=== PATIENT | female | born 1950 | race Caucasian/White ===

== ENCOUNTER 2016-08-07 09:01 | Emergency (ER) | payer BC ==
[2016-08-07] MEDS ORDERED: Hyoscyamine TAB* 0.125 MG PO ONE (10:01)
[2016-08-07 10:02] LABS: Hematocrit 43 % (35-47); Hemoglobin 14.4 g/dl (12.0-16.0); Mean Corpuscular HGB Conc 33 g/dl (31-36); Mean Corpuscular Hemoglobin 28 pg (27-31); Mean Corpuscular Volume 84 fL (80-97); Mean Platelet Volume 8 um3 (7.4-10.4); Red Blood Count 5.16 10^6/ul (4.0-5.4); Red Cell Distribution Width 15 % (10.5-15); White Blood Count 7.6 10^3/ul (3.5-10.8)
[2016-08-07] MEDS ORDERED: NS 0.9% 1000 ML* 1,000 ML IV ONE ×2 (10:15→12:12)
[2016-08-07] MEDS ORDERED: Ondansetron INJ* 2 MG/ML VIAL IV ONE (10:15)
--- NOTE | 2016-08-07 10:15 | ED ---
Abdominal Pain/Female - HPI Summary HPI Summary: Patient presents with a week of nausea, diarrhea and abdominal bloating and pain. She has been "gassy" for approximately three weeks, but 6 days ago she developed pain. Her last normal stool was 6 days ago. Since then she has had a "rolling sensation" in her stomach with LUQ and periumbilical pain. She denies fever, chills, back pain or anorexia, but when she eats she becomes nauseous. - History of Current Complaint Chief Complaint: EDAbdPain Stated Complaint: DIARRHEA/SOB Time Seen by Provider: 08/07/16 09:27 Hx Obtained From: Patient ?: No Onset/Duration: Gradual Onset Timing: Constant Severity Initially: Mild Severity Currently: Moderate Pain Intensity: 5 Location: Discrete At: LUQ, Umbilical Radiates: No Character: Dull, Other: - bloated Aggravating Factor(s): Food Alleviating Factor(s): Nothing Associated Signs and Symptoms: Positive: Nausea, Diarrhea Allergies/Adverse Reactions: Allergies Allergy/AdvReac Type Severity Reaction Status Date / Time Erythromycin AdvReac Intermediate Nausea Verified 08/07/16 09:10 Ibuprofen [From Advil] AdvReac Intermediate GI Upset Verified 08/07/16 09:10 PMH/Surg Hx/FS Hx/Imm Hx Endocrine/Hematology History: Reports: Hx Thyroid Disease - Thyroidectomy Denies: Hx Diabetes Cardiovascular History: Denies: Hx Hypertension Respiratory History: Denies: Hx Asthma, Hx Chronic Obstructive Pulmonary Disease (COPD) GI History: Denies: Hx Ulcer - Surgical History Surgery Procedure, Year, and Place: Hysterectomy 1991, Thyroidectomy 1996, Ovarian Cyst 1991 Infectious Disease History: No Infectious Disease History: Denies: Hx Hepatitis, Hx Human Immunodeficiency Virus (HIV), Traveled Outside the [place] in Last 30 Days - Family History Known Family History: Positive: None - Social History Occupation: Unemployed Lives: With Family Alcohol Use: Occasionally Substance Use Type: Reports: None Smoking Status (MU): Never Smoked Tobacco Review of Systems Negative: Fever, Chills Negative: Chest Pain Negative: Shortness Of Breath, Cough Positive: Abdominal Pain, Diarrhea, Nausea. Negative: Vomiting Positive: no symptoms reported Negative: Headache All Other Systems Reviewed And Are Negative: Yes Physical Exam Triage Information Reviewed: Yes Vital Signs On Initial Exam: Initial Vitals Temp Pulse Resp BP Pulse Ox 98.5 F 97 18 120/84 98 08/07/16 09:09 08/07/16 09:09 08/07/16 09:09 08/07/16 09:09 08/07/16 09:09 Vital Signs Reviewed: Yes Appearance: Positive: Well-Appearing, Pain Distress, Obese Skin: Positive: Warm, Skin Color Reflects Adequate Perfusion, Dry, Soft Head/Face: Positive: Normal Head/Face Inspection Eyes: Positive: EOMI, ARIC, Conjunctiva Clear ENT: Positive: Hearing grossly normal, Pharynx normal Neck: Positive: Supple, Nontender, No Lymphadenopathy Respiratory/Lung Sounds: Positive: Clear to Auscultation, Breath Sounds Present Cardiovascular: Positive: RRR Abdomen Description: Positive: Soft. Negative: Nontender - LUQ pain, CVA Tenderness (R), CVA Tenderness (L), Distended, Guarding Bowel Sounds: Positive: Present Musculoskeletal: Negative: Edema Left, Edema Right Neurological: Positive: Sensory/Motor Intact, Alert, Oriented to Person Place, Time, NV Bundle Intact Distally Psychiatric: Positive: Affect/Mood Appropriate AVPU Assessment: Alert Diagnostics - Vital Signs Vital Signs Temp Pulse Resp BP Pulse Ox 08/07/16 09:23 90 116/76 97 08/07/16 09:20 86 95 08/07/16 09:19 183/157 08/07/16 09:09 98.5 F 97 18 120/84 98 - Laboratory Lab Results: Lab Results 08/07/16 Range/Units 09:55 WBC 7.6 (3.5-10.8) 10^3/ul RBC 5.16 (4.0-5.4) 10^6/ul Hgb 14.4 (12.0-16.0) g/dl Hct 43 (35-47) % MCV 84 (80-97) fL MCH 28 (27-31) pg MCHC 33 (31-36) g/dl RDW 15 (10.5-15) % Plt Count 318 (150-450) 10^3/ul MPV 8 (7.4-10.4) um3 Neut % (Auto) 71.3 (38-83) % Lymph % (Auto) 17.3 L (25-47) % [place] % (Auto) 8.3 (1-9) % Eos % (Auto) 2.6 (0-6) % Baso % (Auto) 0.5 (0-2) % Absolute Neuts (auto) 5.4 (1.5-7.7) 10^3/ul Absolute Lymphs (auto) 1.3 (1.0-4.8) 10^3/ul Absolute Monos (auto) 0.6 (0-0.8) 10^3/ul Absolute Eos (auto) 0.2 (0-0.6) 10^3/ul Absolute Basos (auto) 0 (0-0.2) 10^3/ul Absolute Nucleated RBC 0 10^3/ul Nucleated RBC % 0 Result Diagrams: 08/07/16 09:55 08/07/16 11:07 Lab Statement: Any lab studies that have been ordered have been reviewed, and results considered in the medical decision making process. - CT No standard instances CT Interpretation: Positive (See Comments) CT Interpretation Completed By: Radiologist - mesenteric lymphadenopathy Re-Evaluation - Re-Evaluation First Eval Re-Evaluation Time: 11:00 Change: Improved - abdominal discomfort decreased with medication Abdominal Pain Fem Course/Dx - Course Course Of Treatment: The patient had two bladder scans that revealed urine retention, but the patient refused urinary catheterization for discharge. She accepted information for referral to urology, and was warned of the potential risks of sepsis and/or from possilbe infection from retained urine. She signed AMA paperwork and was discharged in stable condition. - Diagnoses Differential Diagnosis: Positive: Bowel Obstruction, Constipation, Diverticulitis, Hepatitis, Irritable Bowel Syndrome, Pancreatitis, Renal Colic Provider Diagnoses: Mesenteric lymphadenitis, Urinary retention with incomplete bladder emptying Discharge - Discharge Plan Condition: Stable Disposition: AGAINST MEDICAL ADVICE Prescriptions: Hyoscyamine TAB* [Anaspaz TAB*] 0.125 mg PO Q6H PRN #16 tab PRN Reason: Spasms Ondansetron ODT TAB* [Zofran Odt TAB*] 4 mg PO Q6H PRN #20 tab.odt PRN Reason: Nausea Patient Education Materials: Gastritis (ED), Acute Urinary Retention in Women ( ED) Referrals: Pa Lewis MD [Primary Care Provider] - Feliberto Tillman MD [Medical Doctor] - Additional Instructions: It is imperative that you return to the emergency department if you develope fever, chills, or feel ill. Use the medication as needed for stomach pain and nausea. Rest and drink plenty of fluids to keep hydrated. Call Dr. Tillman's office [facility] for an appointment to be seen [facility]. Follow-up with Dr. Debbie BRISENO regarding your kidney function.
[2016-08-07 10:19] LABS: ALT 23 U/L (7-52); Albumin 4.6 g/dL (3.2-5.2); Alkaline Phosphatase 75 U/L (34-104); Amylase 41 U/L (29-103); BUN/Creatinine Ratio 17.3 (8-20); Blood Urea Nitrogen 29 mg/dL (6-24); C Reactive Protein 2.87 mg/L (< 5.00); CO2 Carbon Dioxide 15 mmol/L (22-32); Calcium 9.6 mg/dL (8.6-10.3); Chloride 106 mmol/L (101-111); EGFR African American 39.4 (>60); EGFR Non-African American 30.7 (>60); Globulin 3.3 g/dL (2-4); Glucose 115 mg/dL (70-100); Lipase 71 U/L (11.0-82.0); Sodium 131 mmol/L (133-145); Total Protein 7.9 g/dL (6.4-8.9)
--- NOTE | 2016-08-07 11:45 | RAD ---
CLINICAL HISTORY: Diffuse abdominal pain COMPARISON: None TECHNIQUE: Multiple contiguous axial CT scans were obtained of the abdomen and pelvis, without intravenous contrast enhancement. Coronal and sagittal multiplanar reformations are submitted for review. Oral contrast was administered. FINDINGS: The study is limited by the lack of intravenous contrast. This limits evaluation of the solid organs and vasculature. LUNG BASES: The lung bases are clear. LIVER: The liver is diffusely low in attenuation compared to the spleen. There are no focal hepatic parenchymal masses. BILE DUCTS: There is no intrahepatic or extrahepatic biliary dilatation. GALLBLADDER: The gallbladder is normal, without pericholecystic inflammatory change. PANCREAS: The pancreas is normal, without mass or ductal dilatation. SPLEEN: Normal in size and appearance. UPPER GI TRACT: Evaluation of the gastrointestinal tract is limited by incomplete gastric distention. The upper GI tract is unremarkable. SMALL BOWEL AND MESENTERY: There is no structural. There are multiple small lymph nodes of the root of small bowel mesentery without lymphadenopathy by size criteria. COLON: The colon is normal in contour, course, caliber. There is no pericolonic inflammatory change. ADRENALS: Normal bilaterally. KIDNEYS: The right kidney is essentially replaced by multiple large cysts, the appearance is consistent with cystic dysplastic kidney. There is associated hydroureter on the right. On the left, there is no hydronephrosis or nephrolithiasis BLADDER: The bladder is smooth in contour. PELVIC ORGANS: The pelvic organs are not visualized. AORTA: The aorta is normal. IVC: Unremarkable LYMPH NODES: There is no lymphadenopathy by size criteria. ABDOMINAL WALL: There is no evidence for abdominal wall hernia. BONES AND SOFT TISSUES: There are mild diffuse degenerative changes. OTHER: None IMPRESSION: 1. MULTIPLE SMALL MESENTERIC LYMPH NODES WITHOUT LYMPHADENOPATHY BY SIZE CRITERIA. 2. NO OBSTRUCTION. 3. FATTY LIVER. 4. 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
[2016-08-07 13:17] LABS: Urine Bacteria Absent (Absent); Urine Bilirubin Negative (Negative); Urine Glucose Negative (Negative); Urine Nitrite Negative (Negative)
[2016-08-07 15:08] VITALS: BP 149/84
== END 2016-08-07 15:08 | disposition home or self-care (01) ==
LOC: ED 09:01
DX: R10.12 Left upper quadrant pain (principal); K76.0 Fatty (change of) liver, not elsewhere classified; R11.0 Nausea; R19.7 Diarrhea, unspecified; R14.0 Abdominal distension (gaseous)
CPT/HCPCS: 36415; 74176; 80053; 81003; 81015; 82150; 83605; 83690; 85025; 86140; 87086; 96374; 99284; A9270-GY

== ENCOUNTER 2021-10-30 10:41 | Observation (INO) ==
[~2021-10-30 10:41] MED LIST: Buffered Lidocaine 1% SYRIN 1 ml INTRADERM ONE; EPHEDrine (Pressors) 50 MG/ML VIAL ONE; HYDROcodone/ACETAMIN 5/325 mg TAB PO PRN; Lactated Ringers 1000 ml BAG 1,000 ML IV SCH; Metoclopramide 5 MG/ML VIAL (10 mg) IV PRN; Naloxone 0.4 mg VIAL 0.4 mg/ml 1 ml VIAL IV PRN; Ondansetron 4 mg VIAL 2 MG/ML 2 ml VIAL IV PRN; fentaNYL 100 mcg/2 ml 50 MCG/ML VIAL IV PRN
[2021-10-30] MEDS ORDERED: ceFAZolin 2 GM in NS PREMIX 2 GM/100 ML BAG IVPB ONE (11:24)
[2021-10-30] MEDS ORDERED: Dexamethasone IV 4 MG/ML VIAL 1 ml VIAL ONE (11:51)
[2021-10-30] MEDS ORDERED: Midazolam 2 mg/2 ml VIAL 1 mg/ml 2 ml VIAL (2 mg) ONE ×2 (11:51→13:01)
[2021-10-30] MEDS ORDERED: fentaNYL 100 mcg/2 ml 50 MCG/ML VIAL ONE (11:51)
[2021-10-30] MEDS ORDERED: ROPIVACAINE 5 MG/ML 30 ML BTL (0.5%) ONE ×3 (11:52→12:24)
[2021-10-30] MEDS ORDERED: Lidocaine 1% MPF 5 ML VIAL ONE (12:48)
[2021-10-30] MEDS ORDERED: Phenylephrine IV 10 MG/ML 1 ml VIAL ONE (13:21)
[2021-10-30] MEDS ORDERED: Morphine 2 MG/ML SYRINGE IV PRN (14:12)
[2021-10-30] MEDS ORDERED: Ondansetron 4 mg VIAL 2 MG/ML 2 ml VIAL IV PRN (14:12)
[2021-10-30] MEDS ORDERED: Magnesium Hydroxide LIQ 30 ML UDC PO PRN (14:12)
[2021-10-30] MEDS ORDERED: Lactulose 30 ml UDC PO PRN (14:12)
[2021-10-30] MEDS ORDERED: Ondansetron ODT 4 mg TAB 4 MG TAB PO PRN (14:12)
[2021-10-30] MEDS ORDERED: Albuterol HFA INHALER 8 gm MDI INH PRN (14:20)
[2021-10-30] MEDS ORDERED: Propofol 10 MG/ML 20 ML BTL ONE (14:44)
[2021-10-30] MEDS ORDERED: Dextrose 50% Syringe 50 ml 25 GM/50 ML SYRINGE IV PUSH PRN (17:26)
[2021-10-30] MEDS: Lactated Ringers 1000 ml BAG 1,000 ML IV SCH ×2 (17:43→22:37)
[2021-10-30] MEDS ORDERED: Mometasone/Formoter 200/5 MDI INH PRN (17:47)
[2021-10-30] MEDS ORDERED: Lactated Ringers 500 ml BAG 500 ML IV ONE (20:12)
[2021-10-30] MEDS: ceFAZolin 1 GM ADVAN 1 GM in NS 0.9% 50 ML 50 ML IVPB SCH (20:13)
[2021-10-30] MEDS: Magnesium Hydroxide LIQ 30 ML UDC PO SCH (20:13)
[2021-10-30 20:30] LABS: ABS Lymphocytes 0.5 10^3/ul (1.0-4.8); ABS Monocytes 0.3 10^3/ul (0-0.8); Eosinophil % 0.1 %; Hematocrit 33 % (35-47); Hemoglobin 11.1 g/dL (12.0-16.0); Lymphocyte % 3.5 %; Mean Corpuscular HGB Conc 34 g/dL (31-36); Mean Corpuscular Hemoglobin 29 pg (27-31); Mean Corpuscular Volume 85 fL (80-97); Mean Platelet Volume 7.5 fL (7.4-10.4); Platelet Count 280 10^3/uL (150-450); Red Blood Count 3.89 10^6 /uL (3.70-4.87); Red Cell Distribution Width 14 % (10-15); White Blood Count 14.8 10^3/uL (3.5-10.8)
[2021-10-30 20:57] LABS: Calcium 9.6 mg/dL (8.6-10.3); Magnesium 1.8 mg/dL (1.9-2.7); Potassium 4.2 mmol/L (3.5-5.0); eGFR CKD-EPI 32.8 (>60)
[2021-10-30] MEDS ORDERED: Magnesium Sulfate 2 gm BAG 2 GM/50 ML BAG IVPB ONE (22:08)
[2021-10-31 06:06] LABS: Hematocrit 31 % (35-47); Hemoglobin 10.3 g/dL (12.0-16.0); Mean Platelet Volume 7.3 fL (7.4-10.4); Platelet Count 258 10^3/uL (150-450)
[2021-10-31] MEDS: ceFAZolin 1 GM ADVAN 1 GM in NS 0.9% 50 ML 50 ML IVPB SCH ×2 (06:36→13:47)
[2021-10-31 06:37] LABS: Calcium 9.4 mg/dL (8.6-10.3); Potassium 4.3 mmol/L (3.5-5.0); eGFR CKD-EPI 38.8 (>60)
[2021-10-31] MEDS ORDERED: Fluticasone NASAL SPRAY 50MCG 16 gm SPRAY BTL INTRANASAL SCH (09:00)
[2021-10-31] MEDS ORDERED: Losartan/HCTZ 100/25 TAB (NF) PO SCH (09:00)
[2021-10-31] MEDS ORDERED: Vitamin THERAPEUTIC TAB PO SCH (09:00)
[2021-10-31] MEDS: Magnesium Hydroxide LIQ 30 ML UDC PO SCH (09:25)
[2021-10-31] MEDS ORDERED: DAPAGLIFLOZIN 10 MG TAB (NF) PO SCH (11:00)
[2021-10-31] MEDS ORDERED: Morphine ER 15 mg TAB ** extended release PO SCH (11:00)
[2021-10-31 11:29] VITALS: BP 129/72
== END 2021-10-31 16:15 | disposition home or self-care (01) ==
LOC: OR 10:41 → SSU 10:41
PROVIDERS: ADMIT Orthopaedic Surgery Adult Reconstructive Orthopaedic Surgery; ATTEND Orthopaedic Surgery Adult Reconstructive Orthopaedic Surgery